=== PATIENT | male | born 1955 | race African-American/Black ===

== ENCOUNTER 2021-04-30 19:10 | Emergency (ER) | payer SELFPAY ==
[~2021-04-30] VITALS: Ht 175.3 cm; Wt 85.8 kg
[2021-04-30 19:25] LABS: MEAN CORPUSCULAR HEMOGLOBIN 27.9 pg (27.5-34.5); MEAN PLATELET VOLUME 7.3 fL (7.4-10.4); PLATELET COUNT 251 x10^3/uL (130-400); RED BLOOD COUNT 3.94 x10^6/uL (4.38-5.82); RED CELL DISTRIBUTION WIDTH 21.3 % (9.4-14.8)
[2021-04-30 19:36] LABS: INTERNATIONAL NORMALIZED RATIO 1.03 (0.93-1.1)
[2021-04-30] MEDS ORDERED: OMNIPAQUE 350 MG/ML, 100ML BOTTLE ONE (19:41)
[2021-04-30] MEDS ORDERED: ATOR20TA37 PO (19:44)
[2021-04-30] MEDS ORDERED: GABA600T7 PO (19:44)
[2021-04-30] MEDS ORDERED: CARV6.252 PO (19:44)
[2021-04-30] MEDS ORDERED: OMEP-110 PO (19:44)
[2021-04-30] MEDS ORDERED: DOXA2TAB9 PO (19:44)
[2021-04-30] MEDS ORDERED: TADA10TA PO (19:44)
[2021-04-30] MEDS ORDERED: VALA500T4 PO (19:44)
[2021-04-30 19:50] LABS: EOS#(MANUAL) 0.35 x10^3/uL (0.0-0.4); EOS% (MANUAL) 3 % (1-7); LYMPH#(MANUAL) 5.27 x10^3/uL (1-3.4); LYMPHS% (MANUAL) 45 % (22-44); MONOS#(MANUAL) 0.47 x10^3/uL (0.3-2.7); MONOS% (MANUAL) 4 % (2-9); REACTIVE LYMPHS # (MANUAL) 0.23 x10^3/uL (0-0); REACTIVE LYMPHS % (MANUAL) 2 % (0-0); SEG#(MANUAL) 5.38 x10^3/uL (1.8-6.8); SEGS% (MANUAL) 46 % (42-75)
[2021-04-30 19:52] LABS: ANISOCYTOSIS 1+; ECHINOCYTES 1+; HYPOCHROMIA 1+; OVALOCYTES 1+; POLYCHROMASIA 1+
[2021-04-30 19:53] LABS: <PLATELET ESTIMATE> ADEQUATE; <PLT MORPHOLOGY> NORMAL PLT MORPH
[2021-04-30 20:21] VITALS: BP 117/63
== END 2021-04-30 21:55 | disposition home or self-care (01) ==
LOC: ED 21:17
DX: G45.9 Transient cerebral ischemic attack, unspecified (principal); R94.31 Abnormal electrocardiogram [ECG] [EKG]; I10 Essential (primary) hypertension; E11.9 Type 2 diabetes mellitus without complications
CPT/HCPCS: 70450; 70496; 70498; 80047; 85025; 85610; 85730; 93005; 99285; Q9967